=== PATIENT | female | born 1955 | race Caucasian/White ===

== ENCOUNTER 2017-12-26 17:19 | Emergency (ER) | payer OTHER ==
[~2017-12-26] VITALS: Ht 170.2 cm; Wt 72.6 kg
[~2017-12-26 17:19] MED LIST: HYDPAM25 PO; Percocet 5-3251 EACH PO; QUET100 PO
[2017-12-26] MEDS ORDERED: BACL10 PO (17:43)
[2017-12-26] MEDS ORDERED: Hydrocodone-Ap1 EA23 PO (17:43)
== END 2017-12-26 18:56 | disposition home or self-care (01) ==
LOC: ER 17:19
DX: J02.9 Acute pharyngitis, unspecified (principal); G25.9 Extrapyramidal and movement disorder, unspecified; J44.9 Chronic obstructive pulmonary disease, unspecified; F17.200 Nicotine dependence, unspecified, uncomplicated; Z88.0 Allergy status to penicillin; Z79.899 Other long term (current) drug therapy
CPT/HCPCS: 87081; 87430; 99283

== ENCOUNTER 2017-12-26 23:40 | Observation (INO) | payer OTHER ==
[~2017-12-26] VITALS: Ht 167.6 cm; Wt 81.7 kg
[~2017-12-26 23:40] MED LIST changes: +BACL10 PO; +Hydrocodone-Ap1 EA23 PO
[2017-12-27 00:08] LABS: BASOPHILS ABSOLUTE AUTO 0.07 K/mm3 (0.00-0.23); BASOPHILS PERCENT AUTO 1 % (0-2); EOSINOPHILS PERCENT AUTO 2 % (0-6); Hematocrit 39.4 % (33.0-51.0); Hemoglobin 13.5 g/dL (11.5-16.0); IMMATURE GRAN ABSOLUTE AUTO 0.05 K/mm3 (0.00-0.10); IMMATURE GRAN PERCENT AUTO 0 % (0-1); LYMPHOCYTES ABSOLUTE AUTO 1.85 K/mm3 (0.84-5.20); LYMPHOCYTES PERCENT AUTO 14 % (21-46); MONOCYTES ABSOLUTE AUTO 0.88 K/mm3 (0.16-1.47); MONOCYTES PERCENT AUTO 6 % (4-13); Mean Corpuscular HGB 28.4 pg (26.0-34.0); Mean Corpuscular HGB Conc 34.3 g/dL (31.5-36.5); Mean Corpuscular Volume 83 fL (80-100); Mean Platelet Volume 11.2 fL (9.1-12.4); NEUTROPHILS ABSOLUTE AUTO 10.62 K/mm3 (1.96-9.15); NEUTROPHILS PERCENT AUTO 78 % (41-73); Platelet Count 259 K/mm3 (150-400); RDW Coefficient Variation 12.7 % (11.7-14.2); RDW Standard Deviation 38.7 fL (35.1-46.3); Red Blood Cell Count 4.76 M/mm3 (3.80-5.20); White Blood Cell Count 13.67 K/mm3 (4.00-11.30)
[2017-12-27 00:18] LABS: Bun/Creatinine Ratio 21.8 (12.0-20.0); Calcium, Blood 10.4 mg/dL (8.5-10.1); Creatinine, Blood 1.47 mg/dL (0.40-1.00); Potassium, Blood 4.3 mmol/L (3.5-5.5)
[2017-12-27 09:17] LABS: Bun/Creatinine Ratio 27.1 (12.0-20.0); Calcium, Blood 9.2 mg/dL (8.5-10.1); Creatinine, Blood 1.07 mg/dL (0.40-1.00); Potassium, Blood 4.1 mmol/L (3.5-5.5)
== END 2017-12-27 11:57 | disposition home or self-care (01) ==
LOC: ER 23:40 → MEDS 23:41
PROVIDERS: Emergency Medicine; Internal Medicine
DX: G25.9 Extrapyramidal and movement disorder, unspecified (principal); N17.9 Acute kidney failure, unspecified; E11.9 Type 2 diabetes mellitus without complications; J44.9 Chronic obstructive pulmonary disease, unspecified; J02.9 Acute pharyngitis, unspecified; F17.200 Nicotine dependence, unspecified, uncomplicated; Z79.01 Long term (current) use of anticoagulants; Z79.891 Long term (current) use of opiate analgesic; Z79.899 Other long term (current) drug therapy; Z88.0 Allergy status to penicillin
CPT/HCPCS: 36415; 80048; 85025; 96372; 96374; 99285; G0378; J1630; J1650; J7030; J7120

== ENCOUNTER 2018-03-07 19:09 | Emergency (ER) | payer OTHER ==
[~2018-03-07] VITALS: Ht 170.2 cm; Wt 89.8 kg
[2018-03-07 21:05] LABS: Calcium, Ionized (POC) 1.24 mmol/L (1.10-1.46); Chloride (POC) 108 mmol/L (98-108); Creatinine (POC) 1.5 mg/dL (0.6-1.0); Glucose (ISTAT POC) 104 mg/dL (70-99); Hemoglobin (POC) 13.3 g/dL (12.0-16.0); Potassium (POC) 4.6 mmol/L (3.5-5.5); Sodium (POC) 142 mmol/L (135-148); Total CO2 (POC) 26 mmol/L (21-32)
[2018-03-07] MEDS ORDERED: HYDR1TAB94 PO (21:38)
== END 2018-03-07 21:58 | disposition home or self-care (01) ==
LOC: ER 19:09
PROVIDERS: Emergency Medicine
DX: M54.6 Pain in thoracic spine (principal); R25.9 Unspecified abnormal involuntary movements; J44.9 Chronic obstructive pulmonary disease, unspecified; Z88.0 Allergy status to penicillin; Z79.899 Other long term (current) drug therapy
CPT/HCPCS: 71046; 80047; 85014; 99283

== ENCOUNTER 2018-04-14 12:09 | Emergency (ER) | payer OTHER ==
[~2018-04-14] VITALS: Ht 170.2 cm; Wt 88.0 kg
[~2018-04-14 12:09] MED LIST changes: +HYDR1TAB94 PO
[2018-04-14 16:11] LABS: BASOPHILS ABSOLUTE AUTO 0.07 K/mm3 (0.00-0.23); BASOPHILS PERCENT AUTO 0 % (0-2); EOSINOPHILS ABSOLUTE AUTO 0.26 K/mm3 (0.00-0.68); EOSINOPHILS PERCENT AUTO 2 % (0-6); Hematocrit 35.4 % (33.0-51.0); Hemoglobin 12.6 g/dL (11.5-16.0); IMMATURE GRAN ABSOLUTE AUTO 0.06 K/mm3 (0.00-0.10); IMMATURE GRAN PERCENT AUTO 0 % (0-1); LYMPHOCYTES ABSOLUTE AUTO 2.56 K/mm3 (0.84-5.20); LYMPHOCYTES PERCENT AUTO 16 % (21-46); MONOCYTES ABSOLUTE AUTO 1.41 K/mm3 (0.16-1.47); MONOCYTES PERCENT AUTO 9 % (4-13); Mean Corpuscular HGB 30.6 pg (26.0-34.0); Mean Corpuscular HGB Conc 35.6 g/dL (31.5-36.5); Mean Corpuscular Volume 86 fL (80-100); Mean Platelet Volume 11.8 fL (9.1-12.4); NEUTROPHILS ABSOLUTE AUTO 11.85 K/mm3 (1.96-9.15); NEUTROPHILS PERCENT AUTO 73 % (41-73); Platelet Count 231 K/mm3 (150-400); RDW Coefficient Variation 14.2 % (11.7-14.2); RDW Standard Deviation 44.9 fL (35.1-46.3); Red Blood Cell Count 4.12 M/mm3 (3.80-5.20); White Blood Cell Count 16.21 K/mm3 (4.00-11.30)
[2018-04-14 16:29] LABS: Alanine Aminotransfer (ALT/SGP 30 U/L (12-78); Albumin, Blood 4.1 g/dL (3.4-5.0); Albumin/Globulin Ratio 1.3 (0.8-1.8); Alk Phos 78 U/L (50-136); Anion Gap 7 mmol/L (6-16); Aspartate Aminotrans (AST/SGOT 22 U/L (12-37); Bilirubin, Total 0.6 mg/dL (0.1-1.0); Blood Urea Nitrogen 36 mg/dL (8-24); Bun/Creatinine Ratio 36.1 (12.0-20.0); CO2, Blood 22 mmol/L (21-32); Calcium, Blood 11.2 mg/dL (8.5-10.1); Chloride, Blood 113 mmol/L (98-108); Globulin, Blood 3.2 g/dL (2.2-4.0); Glomerular Filtration Rate >60 (60-); Glucose, Blood 124 mg/dL (70-99); Potassium, Blood 3.6 mmol/L (3.5-5.5); Sodium, Blood 142 mmol/L (136-145); Total Protein, Blood 7.3 g/dL (6.4-8.2)
[2018-04-14 17:34] LABS: Source, Urine Clean Catch
[2018-04-14 17:52] LABS: Bilirubin, Urine Neg (Neg); Blood, Urine Neg (Neg); Glucose Qualitative, Urine Neg (Neg); Ketones, Urine Neg (Neg); Leukocyte Esterase, Urine Neg (Neg); Nitrite, Urine Neg (Neg); Protein, Urine Neg (Neg); Specific Gravity, Urine 1.005 (1.003-1.022); Urobilinogen, Urine NORM (Normal)
[2018-04-14 18:00] LABS: Appearance, Urine Clear (Clear); Color, Urine Yellow (P-Yellow)
[2018-04-14] MEDS ORDERED: Ativan1 MG PO (18:28)
== END 2018-04-14 19:01 | disposition home or self-care (01) ==
LOC: ER 12:09
PROVIDERS: Emergency Medicine
DX: G25.9 Extrapyramidal and movement disorder, unspecified (principal); Z88.0 Allergy status to penicillin; Z79.899 Other long term (current) drug therapy; J44.9 Chronic obstructive pulmonary disease, unspecified
CPT/HCPCS: 36415; 70450; 80053; 81003; 85025; J2060; J7030

== ENCOUNTER 2019-05-28 18:48 | Emergency (ER) | payer OTHER ==
[~2019-05-28] VITALS: Ht 165.1 cm; Wt 72.6 kg
[~2019-05-28 18:48] MED LIST changes: +Ativan1 MG PO; -BACL10 PO; +BACL20 PO; -QUET100 PO; +Seroquel Xr150 MG PO
[2019-05-28] MEDS ORDERED: Lipitor80 MG PO (19:03)
[2019-05-28] MEDS ORDERED: LOSA25 PO (19:05)
[2019-05-28] MEDS ORDERED: Carisoprodol350 MG PO (19:07)
[2019-05-28] MEDS ORDERED: Benztropine Mesy1 MG PO (19:07)
[2019-05-28] MEDS ORDERED: BUDE6HFA INH (19:08)
[2019-05-28] MEDS ORDERED: PANT40 PO (19:08)
[2019-05-28 19:13] LABS: BASOPHILS ABSOLUTE AUTO 0.04 K/mm3 (0.00-0.23); BASOPHILS PERCENT AUTO 0 % (0-2); EOSINOPHILS ABSOLUTE AUTO 0.18 K/mm3 (0.00-0.68); EOSINOPHILS PERCENT AUTO 1 % (0-6); Hematocrit 33.7 % (33.0-51.0); Hemoglobin 11.7 g/dL (11.5-16.0); IMMATURE GRAN ABSOLUTE AUTO 0.03 K/mm3 (0.00-0.10); IMMATURE GRAN PERCENT AUTO 0 % (0-1); LYMPHOCYTES ABSOLUTE AUTO 1.71 K/mm3 (0.84-5.20); LYMPHOCYTES PERCENT AUTO 12 % (21-46); MONOCYTES ABSOLUTE AUTO 1.03 K/mm3 (0.16-1.47); MONOCYTES PERCENT AUTO 7 % (4-13); Mean Corpuscular HGB 30.5 pg (26.0-34.0); Mean Corpuscular HGB Conc 34.7 g/dL (31.5-36.5); Mean Corpuscular Volume 88 fL (80-100); Mean Platelet Volume 11.9 fL (9.1-12.4); NEUTROPHILS ABSOLUTE AUTO 11.68 K/mm3 (1.96-9.15); NEUTROPHILS PERCENT AUTO 80 % (41-73); Platelet Count 228 K/mm3 (150-400); RDW Coefficient Variation 13.1 % (11.7-14.2); RDW Standard Deviation 42.3 fL (35.1-46.3); Red Blood Cell Count 3.84 M/mm3 (3.80-5.20); White Blood Cell Count 14.67 K/mm3 (4.00-11.30)
[2019-05-28 19:33] LABS: Alanine Aminotransfer (ALT/SGP 16 U/L (12-78); Albumin/Globulin Ratio 1.2 (0.8-1.8); Alk Phos 93 U/L (50-136); Anion Gap 9 mmol/L (6-16); Aspartate Aminotrans (AST/SGOT 16 U/L (12-37); Bilirubin, Total 0.7 mg/dL (0.1-1.0); Blood Urea Nitrogen 36 mg/dL (8-24); Bun/Creatinine Ratio 14.2 (12.0-20.0); CO2, Blood 22 mmol/L (21-32); CPK Creatine Kinase 107 U/L (26-193); Calcium, Blood 10.9 mg/dL (8.5-10.1); Chloride, Blood 108 mmol/L (98-108); Creatine Kinase MB 2.8 ng/mL (0.0-3.6); Creatine Kinase MB Index 2.6 (0.0-4.0); Creatinine, Blood 2.54 mg/dL (0.40-1.00); Ethanol (Alcohol), Blood, Med <3 mg/dL; Globulin, Blood 3.4 g/dL (2.2-4.0); Glomerular Filtration Rate 20 (60-); Glucose, Blood 154 mg/dL (70-99); Sodium, Blood 139 mmol/L (136-145); Total Protein, Blood 7.4 g/dL (6.4-8.2)
[2019-05-28 20:30] LABS: Source, Urine Catheter
[2019-05-28 20:32] LABS: Blood, Urine 2+ (Neg); Glucose Qualitative, Urine Neg (Neg); Ketones, Urine 1+ (Neg); Leukocyte Esterase, Urine 3+ (Neg); Nitrite, Urine Neg (Neg); Protein, Urine 2+ (Neg); Urobilinogen, Urine 1+ (Normal)
[2019-05-28 20:39] LABS: Appearance, Urine Cloudy (Clear); Bilirubin, Urine 1+ (Neg); Color, Urine Yellow (P-Yellow)
[2019-05-28 20:40] LABS: Bacteria Many /hpf; Red Blood Cells, Urine 0-2 /hpf (0-2); Squamous Epithelial Cells Mod /hpf (Few); White Blood Cells, Urine 50-100 /hpf (0-5)
[2019-05-28 20:41] LABS: U Amphetamine Screen Not Detected; U Barbituate Screen Not Detected; U Benzodiazapine Screen Not Detected; U Buprenorphine Screen Not Detected; U Cannabinoids Screen DETECTED; U Cocaine Screen Not Detected; U Methadone Screen Not Detected; U Methamphetamine Screen Not Detected; U Opiates Screen Not Detected; U Oxycodone Screen Not Detected; U Phencyclidine Screen Not Detected; U Propoxyphene Screen Not Detected
== END 2019-05-29 02:12 | disposition home or self-care (01) ==
LOC: ER 18:48
PROVIDERS: Emergency Medicine
DX: G25.5 Other chorea (principal); G24.01 Drug induced subacute dyskinesia; F17.200 Nicotine dependence, unspecified, uncomplicated; Z88.0 Allergy status to penicillin; Z79.899 Other long term (current) drug therapy
CPT/HCPCS: 36415; 80053; 81001; 82550; 82553; 85025; 87077; 87086; 87186; 96361; 96374; 96375; 96376; 99284-25; G0480; J1200; J2060; J7030; P9612

== ENCOUNTER 2020-03-24 06:08 | Observation (INO) | payer OTHER ==
[~2020-03-24] VITALS: Ht 154.9 cm; Wt 80.5 kg
[~2020-03-24 06:08] MED LIST changes: -BACL20 PO; +Carisoprodol350 MG PO; -Seroquel Xr150 MG PO
[2020-03-24 07:25] LABS: BASOPHILS PERCENT AUTO 1 % (0-2); EOSINOPHILS PERCENT AUTO 1 % (0-6); Hematocrit 35.4 % (33.0-51.0); Hemoglobin 12.3 g/dL (11.5-16.0); IMMATURE GRAN ABSOLUTE AUTO 0.09 K/mm3 (0.00-0.10); IMMATURE GRAN PERCENT AUTO 1 % (0-1); LYMPHOCYTES ABSOLUTE AUTO 2.74 K/mm3 (0.84-5.20); LYMPHOCYTES PERCENT AUTO 15 % (21-46); MONOCYTES ABSOLUTE AUTO 1.77 K/mm3 (0.16-1.47); MONOCYTES PERCENT AUTO 10 % (4-13); Mean Corpuscular HGB 28.9 pg (26.0-34.0); Mean Corpuscular HGB Conc 34.7 g/dL (31.5-36.5); Mean Corpuscular Volume 83 fL (80-100); Mean Platelet Volume 11.1 fL (9.1-12.4); NEUTROPHILS ABSOLUTE AUTO 13.54 K/mm3 (1.96-9.15); NEUTROPHILS PERCENT AUTO 73 % (41-73); Platelet Count 286 K/mm3 (150-400); RDW Coefficient Variation 13.3 % (11.7-14.2); RDW Standard Deviation 40.3 fL (35.1-46.3); Red Blood Cell Count 4.26 M/mm3 (3.80-5.20); White Blood Cell Count 18.44 K/mm3 (4.00-11.30)
[2020-03-24 07:47] LABS: Albumin, Blood 4.4 g/dL (3.4-5.0); Albumin/Globulin Ratio 1.2 (0.8-1.8); Bilirubin, Total 0.8 mg/dL (0.1-1.0); Bun/Creatinine Ratio 17.4 (12.0-20.0); Calcium, Blood 10.4 mg/dL (8.5-10.1); Creatinine, Blood 2.36 mg/dL (0.40-1.00); Globulin, Blood 3.8 g/dL (2.2-4.0); Potassium, Blood 4.6 mmol/L (3.5-5.5); Total Protein, Blood 8.2 g/dL (6.4-8.2)
[2020-03-24 07:52] LABS: U Amphetamine Screen Not Detected; U Barbituate Screen Not Detected; U Benzodiazapine Screen Not Detected; U Buprenorphine Screen Not Detected; U Cannabinoids Screen DETECTED; U Cocaine Screen Not Detected; U Methadone Screen Not Detected; U Methamphetamine Screen Not Detected; U Opiates Screen Not Detected; U Oxycodone Screen Not Detected; U Phencyclidine Screen Not Detected; U Propoxyphene Screen Not Detected
[2020-03-24 08:12] LABS: Creatine Kinase MB 4.8 ng/mL (0.0-3.6); Creatine Kinase MB Index 1.9 (0.0-4.0)
--- NOTE | 2020-03-24 10:48 | NUR ---
PT ADMITTED TO ICU AT 1005 FOR ARF, POSSIBLE SEPSIS, AND EXACERBATION OF MOVEMENT DISORDER. PT ARRIVED WRITHING IN [place], ABLE TO FOLLOW COMMANDS. DROWSY BUT ORIENTED X3, SLOW TO ANSWER QUESTIONS. WILL KEEP NPO PT UNABLE TO SWALLOW SAFELY AT THIS TIME. PT C/O PAIN 8/10 TO BODY AND LEGS. FENT 12.5MCG GIVEN. PT HAD ALREADY RECEIVED BENADRYL AND ATIVAN IN ER. PT ABLE TO DRIFT TO SLEEP; TWITCHES IN SLEEP BUT MOVEMENT IMPROVED. NS STARTED AT 150CC/HR. VSS. AFEBRILE. LACTIC ACID NORMAL. COVID NEG.
[2020-03-24] MEDS ORDERED: BENZTROPINE2 MG/2 M1 IM (14:01)
[2020-03-24] MEDS ORDERED: Lipitor80 MG PO (14:41)
[2020-03-24] MEDS ORDERED: LOSA25 PO (14:41)
[2020-03-24] MEDS ORDERED: SYMBICORT 160-4.6 GM INH (14:41)
[2020-03-24] MEDS ORDERED: Benztropine Mesy1 MG PO (14:41)
[2020-03-24] MEDS ORDERED: PANT40 PO (14:42)
[2020-03-24] MEDS ORDERED: ALBU90OI INH (14:43)
[2020-03-24] MEDS ORDERED: BACL10 PO (14:47)
[2020-03-24] MEDS ORDERED: HYDPAM50 PO (14:57)
[2020-03-24] MEDS ORDERED: DULO60 PO (14:57)
[2020-03-24] MEDS ORDERED: SEROQUEL PO (14:58)
[2020-03-24] MEDS ORDERED: GABA300 PO (14:58)
[2020-03-24] MEDS ORDERED: STIOLTO RESPIMAT4 G1 INH (15:02)
[2020-03-24] MEDS ORDERED: METF500 PO (15:04)
--- NOTE | 2020-03-24 15:46 | NUR ---
PT SLEEPING ON AND OFF; MOSTLY SLEEPING. CONT TO WRITHE IN BED ALMOST NON-STOP DESPITE SLEEPING, SEDATION/ATIVAN/BENADRYL.
--- NOTE | 2020-03-24 16:53 | NUR ---
CALL TO DR FIERRO REGARDINMG LITTLE IMPROVEMENT IN MOVEMENT. ROBIN ORDERED FOR NOW. ATIVAN AND FENT DOSE INCREASED. FENT IV GIVEN NOW FOR SEVERE LEG PAIN/CRAMPS; PT SOMEWHAT CALM AFTER FENT. PT HAS NOT VOIDED SINCE ER. BLADDER SCAN SHOWS 375. WILL ATTEMPT A BEDPAN WHICH MAY PROVE DIFFICULT WITH PT'S MOVEMENT.
--- NOTE | 2020-03-24 17:38 | NUR ---
PT UNABLE TO VOID ON BEDPAN. PT STATED THAT IT HURT TO VOID. LANZA ORDERED. PT REFUSED. PT BECAME VERY AGITATED AND ATTEMPTED TO LEAVE BY CRAWLING OVER BED RAIL. PT'S MOVEMENTS REMAIN VERY SPASTIC, UNCONTROLLED, AND WILD. PT UNABLE TO HOLD ANY PART OF HER BODY STILL. PT FLAILING/WRITHING IN BED. ATIVAN DID NOT IMPROVE HER MOVEMENTS. COGENTIN IM GIVEN. PT PLACED IN SUBHASH AND WRIST RESTRAINTS FOR SAFETY SHE WAS TRYING TO PULL OUT IV'S. PT ORIENTED TO NAME ONLY. PT STATED IN JUMBLED WORDS THAT SHE WOULD TAKE A TAXI HOME. PT UNABLE TO GIVE HOME ADDRESS. PT UNABLE TO STATE YEAR, OR TOWN, OR NAME OF HOSPITAL. SHE DID STATE THAT SHE WAS IN THE ER. PT WAS DISHEVELED UPON ARRIVAL TO ICU WITH SEVERLY MATTED HAIR AND BLACK SOILED FEET. DR FIERRO CALLED AND GIVEN FULL UPDATE.
--- NOTE | 2020-03-24 18:32 | NUR ---
DR ISTRATE IN TO SEE PT. PRECEDEX ORDERED. PT IS IN AND OUT OF SLEEP; MOSTLY SLEEPING, CONT TO HAVE SPASTIC RANDOM MOVEMENT EVEN WITH SLEEP; BUT THE MOVEMENTS HAVE SLOWED DOWN.
--- NOTE | 2020-03-24 22:07 | NUR ---
ASSUMPTION OF CARE PT RESTING IN BED, PRECEDEX INF @ 4ml/hr (SEE FLOWSHEET FOR TITRATION RATES), PT DOES NOT AROUSE WITH VERBAL STIMULOUS, AROUSABLE TO NOXIOUS STIMULI AND ORIENTED TO SELF, FOLLOWING SOME COMMANDS. RESTLESS/INVOLUNTARY MOVEMENTS NOTED, DECREASE WITH UNINTERRUPTED REST. O2 SATURATIONS>90% ON 2L PER NC, MONITOR SHOWS SINUS RHYTHM WITH HR 70'S-80'S, BP STABLE WITH SBP 90'S-110. EVENING MEDS HELD, R/T DEC LOC, PT UNSAFE TO SWALLOW AT THIS TIME. NO VOID SINCE ADMIT, WILL CONTINUE TO MONITOR, PLAN FOR POSSIBLE LANZA CATHETER PLACEMENT. PT MOVES LOWER EXT INDEPENDENTLY, SHIFTS HIPS IN BED.
[2020-03-24 22:40] LABS: Source, Urine Catheter
[2020-03-24 22:45] LABS: Appearance, Urine Clear (Clear); Bilirubin, Urine Neg (Neg); Blood, Urine Neg (Neg); Color, Urine Amber (P-Yellow); Glucose Qualitative, Urine Neg (Neg); Ketones, Urine Neg (Neg); Leukocyte Esterase, Urine Neg (Neg); Nitrite, Urine Neg (Neg); Protein, Urine Neg (Neg); Specific Gravity, Urine 1.025 (1.003-1.022); Urobilinogen, Urine NORM (Normal)
--- NOTE | 2020-03-24 23:43 | NUR ---
MID SHIFT NOTE SEDATION CONTINUES, PT AROUSES WITH NURSING CARE, BECOMES AGITATED AT TIMES. LANZA CATHETER INSERTED DUE TO URINARY RETENTION, PT VERY AGITATED WITH PROCEDURE BUT CALMED QUICKLY UPON COMPLETION. IMMEDIATE RETURN OF APPROX 500ml OF URINE, DARK YELLOW, SPECIMENT SENT TO LAB. UPPER DENTURES REMOVED AND PLACED IN WATER.
[2020-03-25 03:45] LABS: BASOPHILS ABSOLUTE AUTO 0.06 K/mm3 (0.00-0.23); BASOPHILS PERCENT AUTO 1 % (0-2); EOSINOPHILS ABSOLUTE AUTO 0.28 K/mm3 (0.00-0.68); EOSINOPHILS PERCENT AUTO 3 % (0-6); Hematocrit 28.3 % (33.0-51.0); Hemoglobin 9.4 g/dL (11.5-16.0); IMMATURE GRAN ABSOLUTE AUTO 0.02 K/mm3 (0.00-0.10); IMMATURE GRAN PERCENT AUTO 0 % (0-1); LYMPHOCYTES ABSOLUTE AUTO 2.32 K/mm3 (0.84-5.20); LYMPHOCYTES PERCENT AUTO 28 % (21-46); MONOCYTES ABSOLUTE AUTO 0.69 K/mm3 (0.16-1.47); MONOCYTES PERCENT AUTO 8 % (4-13); Mean Corpuscular HGB 28.7 pg (26.0-34.0); Mean Corpuscular HGB Conc 33.2 g/dL (31.5-36.5); Mean Platelet Volume 11.3 fL (9.1-12.4); NEUTROPHILS ABSOLUTE AUTO 4.83 K/mm3 (1.96-9.15); NEUTROPHILS PERCENT AUTO 59 % (41-73); Platelet Count 181 K/mm3 (150-400); RDW Coefficient Variation 13.6 % (11.7-14.2); RDW Standard Deviation 43.2 fL (35.1-46.3); Red Blood Cell Count 3.27 M/mm3 (3.80-5.20)
[2020-03-25 03:46] LABS: Mean Corpuscular Volume 87 fL (80-100)
[2020-03-25 04:03] LABS: Creatinine, Blood 1.24 mg/dL (0.40-1.00); Magnesium, Blood 1.5 mg/dL (1.6-2.4); Potassium, Blood 3.8 mmol/L (3.5-5.5)
[2020-03-25 04:04] LABS: Calcium, Blood 8.2 mg/dL (8.5-10.1)
--- NOTE | 2020-03-25 06:51 | NUR ---
SHIFT SUMMARY PT RESTED T/O SHIFT, PRECEDEX PLACED ON SB, PT WAKING UP AND BECOMING MORE ORIENTED, REMAINS FORGETFUL AND IMPULSIVE, ANXIOUS TO GO HOME. SPASTIC/UNCONTROLLED MOVEMENTS INCREASED TOWARDS END OF SHIFT WHILE PATIENT WAS AWAKE, PT STS THIS IS NORMAL FOR HER. O2 SATURATIONS>90% ON 2L PER NC, MONITOR SHOWS SINUS RHYTHM WITH HR 60'S, BP STABLE. PT TOLERATED PO FLUIDS WITH MEDICATION ADMINISTRATION, SWALLOWS PILLS WHOLE. LANZA IN PLACE DRAINING DARK YELLOW URINE. PT REPORTING 9/10 PAIN TO UPPER THIGHS AND BOTTOM, DECLINES REPOSITIONING, MEDICATED WITH FENTANYL. INCREASED AGITATION THIS MORNING, MEDICATED WITH ATIVAN. REPORT GIVENT TO VIKRAM NICHOLSON.
--- NOTE | 2020-03-25 09:15 | NUR ---
PT SLEEPING THIS AM AT 0730. PT AROUSES TO VOICE, ORIENTED, SOME FORGETFULNESS. SUBHASH REMOVED. MYLA PERKINS'D PER PT REQUEST. PT C/O PAIN TO HIPS/BACK/LEGS 05/14. PT REQUEST PAIN MEDS WHICH ARE NOT DUE YET. PT HAS SPASTIC UNCONTROLLED MOVEMENTS OF ENTIRE BODY. PT ABLE TO SWALLOW SAFELY BUT HAS A DIFFICULT TIME WITH COORDINATION D/T EXCESSIVE MOVEMENTS. PT REQUEST TO GO HOME, IS WILLING TO WAIT FOR DR. ESTEVEZ HAS BEEN OFF SINCE LAST NIGHT. PT DECLINED BREAKFAST.
--- NOTE | 2020-03-25 11:43 | NUR ---
AT 1045 PT ATTEMPTED TO GET OUT OF BED W/O ASSISTANCE TO GO HOME. PT ASSISTED TO BEDSIDE AND THEN TO CHAIR WITH 2 PERSON ASSIST. PT HAD GREAT DIFFICULTY GETTING FROM BED TO CHAIR. PT WAS ABLE TO BEAR WEIGHT FOR ABOUT ONE MIN BEFORE BECOMING INCREASINGLY SHAKY W C/O INCREASED PAIN; THEN NEEDING TO SIT. PT ATTEMPTED TO PUT PANTS ON W/O ASSIST; PT WAS ABLE TO PUT SHIRT AND SLIP ON SHOES ON. PHYSICAL TX CALLED TO COME ASSESS PT, PT [place]ES [place] [address]. P.T. FELT PT WAS HIGH RISK FOR FALLING IF DISCHARGED TODAY. PT INSISTENT ON GOING HOME AMA. DR FIERRO SPOKE TO PT ABOUT STAYING ONE MORE NIGHT, AND IF SHE WANTED TO LEAVE TODAY IT WOULD BE AMA. NURSING SURVEILLANCE CAMERA TECHNICIAN CALLED TO COME SEE AND SPEAK TO PT. BOTH MYSELF AND NURSING SUP ADVISED PT TO STAY FOR HER SAFETY. PT IS ORIENTED X3 AND CONT TO REQUEST TO LEAVE, BUT WOULD BE PHYSICALLY DIFFICULT FOR HER TO DO SO. DR FIERRO CALLED AND UPDATED. PT SIGNED AMA FORM AT 1137. PT ATTEMPTING TO CALL A CAB. PT STATES THAT THERE IS NO ONE THAT SHE OR THAT WE COULD CALL TO ASSIST HER. LUNCH GIVEN TO PT WHILE SHE IS WAITING FOR CAB.
--- NOTE | 2020-03-25 12:31 | NUR ---
PT'S TAXI IS OUT FRONT. PT ESCORTED OUT FRONT VIA WHEELCHAIR AT 1230.
== END 2020-03-25 12:35 | disposition left against medical advice (07) ==
LOC: ER 06:08 → ICUW 06:09 → ICUE 09:51
PROVIDERS: Emergency Medicine; Nurse Practitioner Acute Care; ADMIT Family Medicine
DX: N17.9 Acute kidney failure, unspecified (principal); D72.829 Elevated white blood cell count, unspecified; R52 Pain, unspecified; G25.9 Extrapyramidal and movement disorder, unspecified; I10 Essential (primary) hypertension; E78.5 Hyperlipidemia, unspecified; J44.9 Chronic obstructive pulmonary disease, unspecified; K21.9 Gastro-esophageal reflux disease without esophagitis; F17.210 Nicotine dependence, cigarettes, uncomplicated; Z88.0 Allergy status to penicillin; Z79.899 Other long term (current) drug therapy
CPT/HCPCS: 36415; 51702; 51703; 71045; 80048; 80053; 81003; 82550; 82553; 83605; 83735; 84145; 85025; 96361; 96365; 96372; 96374; 96375; 96376; 97163; 99284-25; A9270-GY; G0378; J0515; J1200; J1650; J2060; J3010; J3475; J7030; U0002

== ENCOUNTER 2021-07-07 10:32 | Emergency (ER) | payer OTHER ==
[~2021-07-07] VITALS: Ht 170.2 cm; Wt 81.7 kg
[~2021-07-07 10:32] MED LIST changes: +ALBU90OI INH; +BACL10 PO; +BENZTROPINE2 MG/2 M1 IM; +Benztropine Mesy1 MG PO; +DULO60 PO; +GABA300 PO; +HYDPAM50 PO; +LOSA25 PO; +Lipitor80 MG PO; +METF500 PO; +PANT40 PO; +SEROQUEL PO; +STIOLTO RESPIMAT4 G1 INH; +SYMBICORT 160-4.6 GM INH
[2021-07-07] MEDS ORDERED: TRAM50 PO (12:23)
== END 2021-07-07 12:34 | disposition home or self-care (01) ==
LOC: ER 10:32
DX: T14.8XXA Other injury of unspecified body region, initial encounter (principal); M54.2 Cervicalgia; M25.511 Pain in right shoulder; M54.9 Dorsalgia, unspecified; I10 Essential (primary) hypertension; E78.5 Hyperlipidemia, unspecified; J44.9 Chronic obstructive pulmonary disease, unspecified; K21.9 Gastro-esophageal reflux disease without esophagitis; F17.210 Nicotine dependence, cigarettes, uncomplicated; Z88.0 Allergy status to penicillin; Z79.899 Other long term (current) drug therapy; Z79.84 Long term (current) use of oral hypoglycemic drugs; W01.0XXA Fall on same level from slipping, tripping and stumbling without subsequent striking against object, initial encounter
CPT/HCPCS: 73030; 96372; 99283-25; J1885

== ENCOUNTER 2022-06-09 21:30 | Emergency (ER) | payer OTHER ==
[~2022-06-09] VITALS: Ht 170.2 cm; Wt 74.8 kg
[~2022-06-09 21:30] MED LIST changes: +TRAM50 PO
== END 2022-06-10 05:00 | disposition home or self-care (01) ==
LOC: ER 21:30
DX: R44.2 Other hallucinations (principal); R23.4 Changes in skin texture; J44.9 Chronic obstructive pulmonary disease, unspecified; I10 Essential (primary) hypertension; K21.9 Gastro-esophageal reflux disease without esophagitis; F17.210 Nicotine dependence, cigarettes, uncomplicated; Z88.0 Allergy status to penicillin; Z79.899 Other long term (current) drug therapy; Z79.84 Long term (current) use of oral hypoglycemic drugs
CPT/HCPCS: 99282; A9270

== ENCOUNTER 2022-07-18 16:22 | Observation (INO) | payer OTHER ==
[~2022-07-18] VITALS: Ht 157.5 cm; Wt 63.1 kg
[2022-07-18 16:44] LABS: Hematocrit 27.3 % (33.0-51.0); Hemoglobin 9.6 g/dL (11.5-16.0); Mean Corpuscular HGB Conc 35.2 g/dL (31.5-36.5); Mean Corpuscular Volume 83 fL (80-100); Mean Platelet Volume 10.9 fL (9.1-12.4); Platelet Count 437 K/mm3 (150-400); RDW Coefficient Variation 13.8 % (11.7-14.2); RDW Standard Deviation 41.2 fL (35.1-46.3); Red Blood Cell Count 3.31 M/mm3 (3.80-5.20)
[2022-07-18 16:52] LABS: White Blood Cell Count 64.24 K/mm3 (4.00-11.30)
[2022-07-18 17:05] LABS: Alanine Aminotransfer (ALT/SGP 15 U/L (12-78); Albumin, Blood 2.5 g/dL (3.4-5.0); Albumin/Globulin Ratio 0.5 (0.8-1.8); Alk Phos 129 U/L (50-136); Anion Gap 9 mmol/L (6-16); Aspartate Aminotrans (AST/SGOT 7 U/L (12-37); Bilirubin, Total 0.4 mg/dL (0.1-1.0); Blood Urea Nitrogen 50 mg/dL (8-24); Bun/Creatinine Ratio 17.4 (12.0-20.0); CO2, Blood 30 mmol/L (21-32); Chloride, Blood 93 mmol/L (98-108); Creatinine, Blood 2.88 mg/dL (0.40-1.00); Globulin, Blood 5.1 g/dL (2.2-4.0); Glomerular Filtration Rate 18 (60-); Glucose, Blood 186 mg/dL (70-99); Potassium, Blood 4.2 mmol/L (3.5-5.5); Sodium, Blood 132 mmol/L (136-145); Total Protein, Blood 7.6 g/dL (6.4-8.2)
[2022-07-18 17:18] LABS: BAND PERCENT MAN 7 % (0-8); BASOPHILS PERCENT MAN 0 % (0-2); EOSINOPHILS PERCENT MAN 0 % (0-6); LYMPHOCYTES ABSOLUTE MAN 2.56 K/mm3 (0.84-5.20); LYMPHOCYTES PERCENT MAN 4 % (21-46); MONOCYTES ABSOLUTE MAN 2.56 K/mm3 (0.16-1.47); MONOCYTES PERCENT MAN 4 % (4-13); SEG NEUTROPHILS PERCENT MAN 85 % (41-73); TOTAL CELLS COUNTED 100
[2022-07-18 17:35] LABS: Source, Urine Straight Cath
[2022-07-18 17:40] LABS: Appearance, Urine Cloudy (Clear); Blood, Urine 1+ (Neg); Color, Urine Amber (P-Yellow); Glucose Qualitative, Urine Neg (Neg); Ketones, Urine 1+ (Neg); Leukocyte Esterase, Urine 2+ (Neg); Nitrite, Urine Pos (Neg); Protein, Urine 3+ (Neg); Specific Gravity, Urine 1.025 (1.003-1.022); Urobilinogen, Urine 1+ (Normal)
[2022-07-18 17:52] LABS: Bilirubin, Urine 2+ (Neg)
[2022-07-18 17:53] LABS: Bacteria Many /hpf; Squamous Epithelial Cells Many /hpf (Few); Transitional Epithelial Cells Rare /hpf (0-Rare); White Blood Cells, Urine 25-50 /hpf (0-5)
[2022-07-18 18:04] LABS: U Amphetamine Screen DETECTED; U Barbituate Screen Not Detected; U Benzodiazapine Screen Not Detected; U Buprenorphine Screen Not Detected; U Cannabinoids Screen Not Detected; U Cocaine Screen Not Detected; U Methadone Screen Not Detected; U Methamphetamine Screen DETECTED; U Opiates Screen Not Detected; U Oxycodone Screen Not Detected; U Phencyclidine Screen Not Detected; U Propoxyphene Screen Not Detected
[2022-07-18 18:05] LABS: Influenza A, PCR NEGATIVE (NEGATIVE); Influenza B, PCR NEGATIVE (NEGATIVE); Resp Syncytial Virus, PCR NEGATIVE (NEGATIVE); SARS-Cov-2 (COVID-19) PCR, MMC NEGATIVE (NEGATIVE)
--- NOTE | 2022-07-18 21:56 | NUR ---
ADMISSION: PATIENT IS RECIEVED FROM ER VIA STRETCHER. A&O TO SELF ONLY. PATIENT IS ON COMFORT CARE. ABX ARE ORDERED AND PER REPORT THESE ORDERS WERE COMFIRMED BY ACCOUNT DEVELOPMENT ASSOCIATE WITH DR GOOD. PATIENT IS NAUSEATED AND REQUESTING WATER. SMALL SIPD ARE GIVEN FOR COMFORT. PATIENT IS ORIENTED TO ROOM AND CALL RODRÍGUEZ. BED ALARM IS ON FOR SAFETY.
--- NOTE | 2022-07-18 22:52 | NUR ---
COMFORT/ADMISSION: PATIENT IS REPORTING NAUSEA, ABD. PAIN WITH ANXIETY. IV ATIVAN 1 MG IS GIVEN. IVF ARE INFUSING PER MD ORDER. LANZA IS DRAINING AN CORI URINE. PATIENT IS UNABLE TO ANSWER ADMISSION HISTORY QUESTIONS DUE TO DECREASED ORIENTATION.
--- NOTE | 2022-07-19 01:09 | NUR ---
COMFORT: PATIENT HAD GOOD EFFECT FROM ATIVAN BUT IS NOW SCORING 6 ON FLACC SCALE AND CONTINUES TO VOMIT SMALL AMOUNTS OF BROWN EMESIS, FREQUENTLY. ROXANOL AND ZOFRAN ARE GIVEN. SON CARLA CAME TO THE ROOM TO SEE THE PATIENT. HE WILL BE STAYING IN HIS CAR DUE TO HAVING HIS DOG WITH HIM. HE WISHES TO BE CALL IF ANY CHANGES OCCUR.
--- NOTE | 2022-07-19 04:28 | NUR ---
COMFORT: PATIENT CONTINUES TO PROJECTILE VOMIT. ATIVAN IS GIVEN. PATIENT IS ASPIRATING. SUCTIONING DONE.
--- NOTE | 2022-07-19 04:45 | NUR ---
PATIENT CONTINUES TO VOMIT AND IS THRASHING IN THE BED. WANTS A DRINK BUT IS VOMITING. ORAL CARE AND SUCTIONING IS DONE. DR XIONG IS CALLED AND ORDERS FOR REGLAN 10MG [address] PL[address] AN NG TUBE IF FAMILY AND PATIENT AGREE. SON CARLA IS CALLED AND IS UPDATED. SON IS CRYING AND SAYS HIS MOTHER TOLD HIME IN THE ER THAT SHE DID NOT WANT ANY TUBES OR SURGERY. CARLA REQUEST PATIENT BE KEPT COMFORTABLE WITH THE MEDICATIONS AND NO NG TUBE.
--- NOTE | 2022-07-19 05:46 | NUR ---
SHIFT SUMMARY: PATIENT HAD GOOD EFFECT FROM ATIVAN AND REGLAN. RESTING NOW WITH SON AT BEDSIDE. SECRETIONS ARE TO LOW TO SUCTION. MOTTLING IS OBSERVED AT BILAT KNEES. RESPIRATIONS ARE AT 30 AND SHALLOW. EMOTIONAL SUPPORT GIVEN TO FAMILY AND PATIENT.
--- NOTE | 2022-07-19 06:30 | NUR ---
COMFORT: AIRHUNGER OBSERVED, RR IS 31. UPPER AIRWAY SECRETIONS ARE TO LOW TO SUCTION. SCOPOLOMINE PATCH IS PLACED BEHIND R EAR AND IV ATIVAN IS GIVEN.
--- NOTE | 2022-07-19 11:01 | NUR ---
AT 0855 THIS NURSE IN ROOM TO ASSESS PATIENT AND COMFORT. PT WAS NOT BREATHING AND HAD NO PULSE. CHARGE NURSE SVITLANA ARZATE, RN NOTIFIED AT THAT TIME. PT'S SON CARLA IN ROOM AT 0900 AND NOTIFIED GENTLY OF HIS MOTHER'S PASSING. HE HAS BEEN AT BEDSIDE SINCE. [facility] NOTIFED OF PATIENT'S PASSING AT 1103 AND STATE THAT THEY WILL BE BY TO YARROW GATHERER PATIENT WITHIN 30 TO 40 MINUTES. CHARGE NURSE NOTIFIED AT 1105
--- NOTE | 2022-07-19 13:17 | NUR ---
MAYANK JOHNSON ARRIVED FROM [facility] AT 1144 ON 07/19/22 TO PROFESSOR OF MUSICOLOGY PATIENT'S BODY. FACE SHEET GIVEN TO HIM. HE SPOKE WITH SON, CARLA PRIOR TO TAKING HER.
== END 2022-07-19 08:55 ==
LOC: ER 16:22 → MEDS 16:23
PROVIDERS: Emergency Medicine; ADMIT Internal Medicine
DX: K63.89 Other specified diseases of intestine (principal); Z88.0 Allergy status to penicillin; G20 Parkinson's disease; E78.5 Hyperlipidemia, unspecified; J44.9 Chronic obstructive pulmonary disease, unspecified; K21.9 Gastro-esophageal reflux disease without esophagitis; Z20.822 Contact with and (suspected) exposure to COVID-19; N17.9 Acute kidney failure, unspecified; N18.30 Chronic kidney disease, stage 3 unspecified; E87.1 Hypo-osmolality and hyponatremia; A41.9 Sepsis, unspecified organism; I12.9 Hypertensive chronic kidney disease with stage 1 through stage 4 chronic kidney disease, or unspecified chronic kidney disease; E11.22 Type 2 diabetes mellitus with diabetic chronic kidney disease; Z66 Do not resuscitate; R65.21 Severe sepsis with septic shock; K56.609 Unspecified intestinal obstruction, unspecified as to partial versus complete obstruction; G92.9 Unspecified toxic encephalopathy
CPT/HCPCS: 0241U; 36415; 51702; 70450; 71045; 74174; 74176; 80053; 81001; 83605; 83690; 85025; 87040; 87086; 93005; 93010; 96361-59; 96365-59; 96366; 96367; 96375; 96375-59; 96376; 96376-59; 99291-25; A9270; G0378; J1790; J2060; J2405; J2765; J3010; J7030; Q9967